=== PATIENT | female | born 1995 | race Caucasian/White ===

== ENCOUNTER 2016-06-03 09:58 | Emergency (ER) | payer BC ==
[2016-06-03] MEDS ORDERED: predniSONE 20 MG Tab PO ONE (10:12)
--- NOTE | 2016-06-03 10:20 | EDM.PDOC ---
ED HPI Allergic Reaction - General Chief Complaint: Allergic Reaction Stated Complaint: ALLERGIC REACTION Time Seen by Provider: 06/03/16 10:02 Source of Information: Reports: Patient History Limitations: Reports: No limitations - History of Present Illness INITIAL COMMENTS - FREE TEXT/NARRATIVE: HISTORY AND PHYSICAL: History of present illness: [20-year-old female with no prior history of chronic urticaria and no history of allergic reactions now presents to emergency room with hives patient is mild hives on her extremities. She has no known allergen exposures. No respiratory symptoms voice changes globus stridor hoarseness wheezing or shortness of air whatsoever. Eyes are mildly itchy patient has taken Benadryl at home which helped the itching but the hives are still present] Review of systems: As per history of present illness and below otherwise all systems reviewed and negative. Past medical history: As per history of present illness and as reviewed below otherwise noncontributory. Surgical history: As per history of present illness and as reviewed below otherwise noncontributory. Social history: No reported history of drug or alcohol abuse. Family history: As per history of present illness and as reviewed below otherwise noncontributory. Physical exam: Patient with mild scattered urticaria. Normal oropharynx no oropharyngeal swelling no stridor clear lungs no bronchospasm normal work of breathing and normal respiratory rate and pulse ox. She is well-appearing in no acute distress HEENT: Atraumatic, normocephalic, pupils reactive, negative for conjunctival pallor or scleral icterus, mucous membranes moist, throat clear, neck supple, nontender, trachea midline. Lungs: Clear to auscultation, breath sounds equal bilaterally, chest nontender. Heart: S1S2, regular, negative for clicks, rubs, or JVD. Abdomen: Soft, nondistended, nontender. Negative for masses or hepatosplenomegaly. Negative for costovertebral tenderness. Pelvis: Stable nontender. Genitourinary: Deferred. Rectal: Deferred. Extremities: Atraumatic, negative for cords or calf pain. Neurovascular unremarkable. Neuro: Awake, alert, oriented. Cranial nerves II through XII unremarkable. Cerebellum unremarkable. Motor and sensory unremarkable throughout. Exam nonfocal. Diagnostics: [] Therapeutics: [] Impression: [] Plan: [Signs and symptoms consistent with possible allergic reaction with unknown trigger versus more likely idiopathic urticaria. Patient aware to use Benadryl and Pepcid as needed for hives and itching. She will finish prednisone as prescribed and followup for allergy testing after symptoms have resolved. No further workup or treatment indicated. No clinical evidence of anaphylaxis or airway involvement. Patient comfortable with outpatient followup and Strict return precautions given Definitive disposition and diagnosis as appropriate pending reevaluation and review of above. - Related Data Allergies/ADRs: Allergies Allergy/AdvReac Type Severity Reaction Status Date / Time No Known Allergies Allergy Verified 06/03/16 10:03 Home Meds: Home Meds Norgestimate-Ethinyl Estradiol [Ortho Tri-Cyclen 28 Tablet] 1 tab PO DAILY 06/03 [History] Phentermine HCl 06/03/16 [History] Prednisone [IMW: predniSONE] 60 mg PO WITHBREAKFAST #15 tab 06/03/16 [Rx] buPROPion [Wellbutrin XL] 06/03/16 [History] Past Medical History HEENT History: Reports: Impaired vision Cardiovascular History: Reports: None Respiratory History: Reports: None Gastrointestinal History: Reports: None Genitourinary History: Reports: None [employer] History: Reports: None Musculoskeletal History: Reports: None Neurological History: Reports: None Psychiatric History: Reports: Anxiety Endocrine/Metabolic History: Reports: Obesity/BMI 30+ Hematologic History: Reports: None Immunologic History: Reports: None Oncologic (Cancer) History: Reports: None Dermatologic History: Reports: None - Infectious Disease History Infectious Disease History: Reports: None - Past Surgical History Head Surgeries/Procedures: Reports: None HEENT Surgical History: Reports: Tonsillectomy Oncologic Surgical History: Reports: None Social & Family History - Family History Family Medical History: Noncontributory - Tobacco Use Smoking Status *Q: Never Smoker - Caffeine Use Caffeine Use: Reports: Coffee, Soda - Recreational Drug Use Recreational Drug Use: No ED ROS ALLERGIC REACTION - Review of Systems Review Of Systems: See Below (Per history of present illness) ED EXAM GENERAL NO PERIP PULSE - Physical Exam Exam: See Below (Per history of present illness) Course - Vital Signs Last Recorded V/S: Last Vital Signs Temp 36.6 C 06/03/16 10:04 Pulse 74 06/03/16 10:04 Resp 18 06/03/16 10:04 BP 130/71 06/03/16 10:04 Pulse Ox 100 06/03/16 10:04 - Orders/Labs/Meds Meds: Medications Discontinued Medications Generic Name Dose Route Start Last Admin Trade Name Kenji PRN Reason Stop Dose Admin Prednisone 60 mg 06/03/16 10:12 06/03/16 10:33 Prednisone PO 06/03/16 10:13 60 mg ONETIME ONE Administration Departure - Departure Time of Disposition: 10:16 Disposition: Home, Self-Care 01 Condition: good Clinical Impression: Urticaria Prescriptions: Prednisone [IMW: predniSONE] 60 mg PO WITHBREAKFAST #15 tab Instructions: Hives, [id number] Referrals: PCP,None [Primary Care Provider] - Forms: ED Department Discharge Additional Instructions: Is not clear what has caused your urticaria (Hives.) It is possible you could be having a mild allergic reaction to something however it is also possible that your hives are not the result of an allergy and just spontaneously occurred. This would be called idiopathic urticaria. Idiopathic means there is no identifiable cause. Take Benadryl as needed for hives and itching and finish prednisone as prescribed. If you experience subtotal relief of your symptoms you can also add Pepcid 20 mg twice a day [id number] to your regimen to Pepcid as commonly used as a stomach medication but it is a type II antihistamine so should contribute to the relief of your symptoms. All up with your DrStephan in one to 2 days and return immediately for any respiratory or airway involvement voice changes difficulty breathing etc.
[2016-06-03 11:18] VITALS: BP 130/71
== END 2016-06-03 10:37 | disposition home or self-care (01) ==
LOC: MW.ED 09:58
DX: L50.9 Urticaria, unspecified (principal); E66.9 Obesity, unspecified; Z68.41 Body mass index [BMI] 40.0-44.9, adult; Z79.899 Other long term (current) drug therapy; Z98.890 Other specified postprocedural states
CPT/HCPCS: 99283; A9270

== ENCOUNTER 2016-06-04 12:48 | Emergency (ER) | payer BC ==
[2016-06-04] MEDS ORDERED: Sodium Chloride 0.9% 1,000 ML IV ONE (13:20)
[2016-06-04] MEDS ORDERED: methylPREDNISolone Sodium Succinate 125 MG/2 ML SDV IVPUSH ONE (13:20)
--- NOTE | 2016-06-04 14:36 | EDM.PDOC ---
ED HPI Allergic Reaction - General Chief Complaint: Allergic Reaction Stated Complaint: ALLERGIC REACTION Time Seen by Provider: 06/04/16 13:15 Source of Information: Reports: Patient, Family History Limitations: Reports: No limitations - History of Present Illness INITIAL COMMENTS - FREE TEXT/NARRATIVE: History of present illness: [20-year-old female returns with increasing presence of rash diffusely spread throughout extremities as well as now advancing to the trunk. Patient was seen and treated for the same and is on steroids with advancing symptoms.] Review of systems: As per history of present illness and below otherwise all systems reviewed and negative. Past medical history: As per history of present illness and as reviewed below otherwise noncontributory. Surgical history: As per history of present illness and as reviewed below otherwise noncontributory. Social history: No reported history of drug or alcohol abuse. Family history: As per history of present illness and as reviewed below otherwise noncontributory. Physical exam: HEENT: Atraumatic, normocephalic, pupils reactive, negative for conjunctival pallor or scleral icterus, mucous membranes moist, throat clear, neck supple, nontender, trachea midline. Lungs: Clear to auscultation, breath sounds equal bilaterally, chest nontender. Heart: S1S2, regular, negative for clicks, rubs, or JVD. Abdomen: Soft, nondistended, nontender. Negative for masses or hepatosplenomegaly. Negative for costovertebral tenderness. Pelvis: Stable nontender. Genitourinary: Deferred. Rectal: Deferred. Extremities: Atraumatic, negative for cords or calf pain. Neurovascular unremarkable. Neuro: Awake, alert, oriented. Cranial nerves II through XII unremarkable. Cerebellum unremarkable. Motor and sensory unremarkable throughout. Exam nonfocal. Patient was seen and treated historically for this same concern the only new agent that she had started had been Wellbutrin as well as a brief exposure to cleaning of a dirty multi- . Patient is on a oral steroid and has involving allergic rash. Culprit most consistent with this would be an ingested allergen which would correlate with the short term experience with Wellbutrin as the only new substance patient has consumed. Diagnostics: [] Therapeutics: [IV, Solu-Medrol 120 mg IV push] Impression: [Allergic dermatitis] Plan: [Continue with steroids already prescribed, soft Wellbutrin] Definitive disposition and diagnosis as appropriate pending reevaluation and review of above. - Related Data Allergies/ADRs: Allergies Allergy/AdvReac Type Severity Reaction Status Date / Time No Known Allergies Allergy Verified 06/03/16 10:03 Home Meds: Home Meds Norgestimate-Ethinyl Estradiol [Ortho Tri-Cyclen 28 Tablet] 1 tab PO DAILY 06/03 [History] Phentermine HCl 37.5 mg 06/03/16 [History] Prednisone [IMW: predniSONE] 60 mg PO WITHBREAKFAST #15 tab 06/03/16 [Rx] buPROPion [Wellbutrin XL] 150 mg 06/03/16 [History] Past Medical History HEENT History: Reports: Impaired vision Cardiovascular History: Reports: None Respiratory History: Reports: None Gastrointestinal History: Reports: None Genitourinary History: Reports: None [employer]OR History: Reports: None Musculoskeletal History: Reports: None Neurological History: Reports: None Psychiatric History: Reports: Anxiety Endocrine/Metabolic History: Reports: Obesity/BMI 30+ Hematologic History: Reports: None Immunologic History: Reports: None Oncologic (Cancer) History: Reports: None Dermatologic History: Reports: None - Infectious Disease History Infectious Disease History: Reports: None - Past Surgical History Head Surgeries/Procedures: Reports: None HEENT Surgical History: Reports: Tonsillectomy Oncologic Surgical History: Reports: None Social & Family History - Family History Family Medical History: Noncontributory - Tobacco Use Smoking Status *Q: Never Smoker Second Hand Smoke Exposure: No - Caffeine Use Caffeine Use: Reports: Coffee, Soda - Recreational Drug Use Recreational Drug Use: No ED ROS ALLERGIC REACTION - Review of Systems Review Of Systems: See Below (See history of present illness) ED EXAM GENERAL NO PERIP PULSE - Physical Exam Exam: See Below (History of present illness) Course - Vital Signs Last Recorded V/S: Last Vital Signs Temp 36.6 C 06/04/16 13:12 Pulse 98 06/04/16 13:12 Resp BP 143/77 H 06/04/16 13:12 Pulse Ox 100 06/04/16 13:12 - Orders/Labs/Meds Orders: Active Orders 24 hr Category Date Time Status Sodium Chloride 0.9% [Normal Saline] 1,000 ml Med 06/04/16 13:20 Ordered IV STAT Medication Orders Sodium Chloride (Normal Saline) 1,000 mls @ 999 mls/hr IV STAT ONE Stop: 06/04/16 14:20 Last Admin: 06/04/16 13:53 Dose: 999 mls/hr Meds: Medications Generic Name Dose Route Start Last Admin Trade Name Kenji PRN Reason Stop Dose Admin Sodium Chloride 1,000 mls @ 999 mls/hr 06/04/16 13:20 06/04/16 13:53 Normal Saline IV 06/04/16 14:20 999 mls/hr STAT ONE Administration Discontinued Medications Generic Name Dose Route Start Last Admin Trade Name Fretierra PRN Reason Stop Dose Admin Methylprednisolone Sodium Succinate 125 mg 06/04/16 13:20 06/04/16 13:52 Solu-Medrol IVPUSH 06/04/16 13:21 125 mg ONETIME ONE Administration Departure - Departure Time of Disposition: 14:36 Disposition: Home, Self-Care 01 Condition: good Clinical Impression: Allergic reaction caused by a drug Qualifiers: Encounter type: subsequent encounter Qualified Code(s): T78.40XD - Allergy, unspecified, subsequent encounter Additional Instructions: The following information is given to patients seen in the emergency department who are being discharged to home. This information is to outline your options for follow-up care. We provide all patients seen in our emergency department with a follow-up referral. The need for follow-up, as well as the timing and circumstances, are variable depending upon the specifics of your emergency department visit. If you don't have a primary care physician on staff, we will provide you with a referral. We always advise you to contact your personal physician following an emergency department visit to inform them of the circumstance of the visit and for follow-up with them and/or the need for any referrals to a consulting specialist. The emergency department will also refer you to a specialist when appropriate. This referral assures that you have the opportunity for follow-up care with a specialist. All of these measure are taken in an effort to provide you with optimal care, which includes your follow-up. Under all circumstances we always encourage you to contact your private physician who remains a resource for coordinating your care. When calling for follow-up care, please make the office aware that this follow-up is from your recent emergency room visit. If for any reason you are refused follow-up, please contact the [facility] Emergency Department at and asked to speak to the emergency department charge nurse. Continue to take steroids as discussed Followup the primary care provider as discussed Return to ED as needed as discussed - My Orders Last 24 Hours: My Active Orders 06/04/16 13:20 Sodium Chloride 0.9% [Normal Saline] 1,000 ml IV STAT - Assessment/Plan Last 24 Hours: My Active Orders 06/04/16 13:20 Sodium Chloride 0.9% [Normal Saline] 1,000 ml IV STAT
[2016-06-04 14:55] VITALS: BP 145/78
== END 2016-06-04 14:55 | disposition home or self-care (01) ==
LOC: MW.ED 12:48
DX: L23.9 Allergic contact dermatitis, unspecified cause (principal); F41.9 Anxiety disorder, unspecified; E66.9 Obesity, unspecified; Z68.30 Body mass index [BMI] 30.0-30.9, adult; Z98.890 Other specified postprocedural states
CPT/HCPCS: 96361; 96374; 99283; J2930; J7040; 99284